=== PATIENT | male | born 1950 | race Caucasian/White ===

== ENCOUNTER 2017-05-02 19:52 | Inpatient (IN) | payer MEDICARE ==
[~2017-05-02] VITALS: Ht 154.7 cm; Wt 126.6 kg
[2017-05-02 20:02] VITALS: BP 123/60
[2017-05-02 20:50] LABS: BASOPHILS % 0.7 % (0.0-1.0); EOSINOPHILS # (AUTO) 0.1 (0.0-0.4); EOSINOPHILS % 1.2 % (0.0-6.0); LYMPHOCYTES # (AUTO) 1.8 (1.0-3.2); LYMPHOCYTES % 29.8 % (18.0-39.1); MEAN CORPUSCULAR HGB CONC 32.9 g/dL (31-35); MEAN CORPUSCULAR VOLUME 85.1 fL (81-99); MONOCYTES # (AUTO) 0.5 (0.2-0.8); MONOCYTES % 7.4 % (4.4-11.3); NEUTROPHILS # (AUTO) 3.5 (2.1-6.9); NEUTROPHILS % 57.6 % (38.7-80.0); PLATELET COUNT 274 x10e3/uL (140-360); RED BLOOD COUNT 2.82 x10e6/uL (4.3-5.7); RED CELL DISTRIBUTION WIDTH 16.3 % (11.7-14.4)
[2017-05-02 20:54] LABS: HEMOGLOBIN 7.9 g/dL (14.0-18.0)
[2017-05-02 21:00] VITALS: BP 123/64
[2017-05-02 21:09] LABS: ALANINE AMINOTRANSFERASE 78 IU/L (0-55); ALBUMIN 2.7 g/dL (3.5-5.0); ALBUMIN/GLOBULIN RATIO 0.5 (0.8-2.0); ALKALINE PHOSPHATASE 741 IU/L (40-150); ANION GAP 16.4 mmol/L (8-16); BLOOD UREA NITROGEN 25 mg/dL (7-26); BUN/CREATININE RATIO 22 (6-25); CALCIUM 8.8 mg/dL (8.4-10.2); CARBON DIOXIDE 22 mmol/L (22-29); CHLORIDE 101 mmol/L (98-107); CHOL/HDL RATIO 5.1 (3.9-4.7); CHOLESTEROL 158 MD/DL (0-199); CREATININE, SERUM 1.16 mg/dL (0.72-1.25); EST GLOMERULAR FILTRATION RATE > 60 ML/MIN (60-); GLUCOSE 159 mg/dL (74-118); HDL CHOLESTEROL 31 MG/DL (40-60); LDL CHOLESTEROL 88 MG/DL (60-130); POTASSIUM 4.4 mmol/L (3.5-5.1); SODIUM 135 mmol/L (136-145); TRIGLYCERIDES 196 MG/DL (0-149)
[2017-05-02] MEDS ORDERED: LORAZEPAM INJ 2 MG/ML VIAL IV STA (21:21)
[2017-05-02 21:22] LABS: ERYTHROCYTE SEDIMENTATION RATE 127 mm/hr (0-13)
[2017-05-02] MEDS ORDERED: DEXTROSE 50% SYRINGE 50 ML IV PRN (21:30)
[2017-05-02] MEDS: INSULIN LISPRO 100 UNIT/1 ML 3ML VIAL SQ SCH (21:30)
[2017-05-02 21:57] LABS: EOSINOPHILS % (MANUAL) 1 % (0-7); HYPOCHROMASIA SLIGHT; LYMPHOCYTES % (MANUAL) 35 % (19-48); MONOCYTES % (MANUAL) 8 % (3.4-9.0); NEUTROPHILS % (MANUAL) 55 % (40-74); PLATELET ESTIMATE ADEQUATE; PLATELET MORPHOLOGY COMMENT NORMAL; RBC MORPHOLOGY COMMENT NORMAL
[2017-05-02] MEDS ORDERED: LORAZEPAM INJ 2 MG/ML VIAL IV ONE (22:45)
[2017-05-02] MEDS: HYDROMORPHONE 1MG/1ML INJ IV PRN (23:31)
--- NOTE | 2017-05-02 23:52 | Diagnostic Imaging Report ---
History: Severe low back pain. Comparison studies: None Technique: Axial images were obtained through the lumbar spine from L1-S1. Coronal and sagittal images reconstructed from the axial data. Intravenous contrast: 100 mL of Isovue-370. Findings: The usual 5 non-rib bearing lumbar vertebral bodies are present. Alignment: Normal lordosis. No scoliosis. Soft tissues: Incidental 1 cm hypodense nodule in left renal parenchyma is partially visualized. Paraspinal muscles: Fatty atrophy of posterior paraspinal muscles from level L2-L4 to L5-S1 Sacroiliac joints: Moderate degenerative changes in bilateral sacroiliac joints with decreased joint space, sclerosis and osteophytes. Vertebrae: Diffuse heterogeneous predominantly sclerotic and hyperdense appearance of the visualized spine, sacrum and ilium is concerning for underlying metastasis process. No acute displaced fracture. Expected postoperative changes from prior laminectomy at L4 and L5. Degenerative changes: L1-L2: No abnormalities. L2-L3: Disc bulge in combination with facet arthrosis and thickened ligamentum flavum results in mild canal stenosis. No significant foraminal stenosis. Mild right and moderate left facet arthrosis. L3-L4: Disc bulge in combination with thickened ligamentum flavum and bilateral facet arthrosis results in severe canal stenosis. Severe right and moderate left foraminal stenosis. Severe bilateral facet arthrosis. L4-L5: Disc bulge and bilateral advanced facet arthrosis results in mild canal stenosis. Severe bilateral foraminal stenosis. Trace amount of air in right facet joint. Severe bilateral facet arthrosis P L5-S1: Disc bulge and facet arthrosis effaces thecal sac without canal stenosis. Bilateral severe foraminal stenosis. Bilateral advanced facet arthrosis. IMPRESSION: 1. Diffuse heterogeneous bone marrow density with predominant sclerotic appearance raises concern for metastases process. Further evaluation with MRI of the lumbar spine with and without contrast is recommended. 2. Multilevel lumbar spondylosis, particularly severe canal stenosis at L3-L4, and mild canal stenosis at L2-L3 and L4-L5. 3. Multilevel foraminal stenosis, particularly severe right and moderate left at L3-L4, severe bilateral at L4-L5 and L5-S1. 4. Multilevel facet arthrosis as detailed above. 5. Ligament, spinal cord and or vascular abnormalities cannot be excluded on the basis of this examination. Signed by: Dr. Marylin Rosales M.D. on 05/02/2017 11:49 PM
[2017-05-02 23:54] LABS: BILIRUBIN,URINE NEGATIVE (NEGATIVE); CLARITY,URINE CLEAR (CLEAR); COLOR,URINE YELLOW (YELLOW); KETONES,URINE NEGATIVE (NEGATIVE); LEUKOCYTE ESTERASE ,URINE NEGATIVE (NEGATIVE); NITRITE,URINE NEGATIVE (NEGATIVE); PROTEIN,URINE DIPSTICK NEGATIVE (NEGATIVE); URINE UROBILINOGEN 0.2 mg/dL (0.2 - 1)
[2017-05-03 00:03] LABS: BACTERIA,URINE FEW /HPF; EPITHELIAL CELLS,URINE FEW /LPF; RBC,URINE 0-5 /HPF (0-5); WBC,URINE (MAN) 0-5 /HPF (0-5)
[2017-05-03 00:36] VITALS: BP 118/56
[2017-05-03 04:00] VITALS: BP 118/58
[2017-05-03 08:05] VITALS: BP 138/64
[2017-05-03] MEDS: FAMOTIDINE 20 MG TAB PO SCH ×2 (08:07→16:01)
[2017-05-03] MEDS: INSULIN DETEMIR 100 UNIT/ML PEN SQ SCH (08:12)
[2017-05-03] MEDS: INSULIN LISPRO 100 UNIT/1 ML 3ML VIAL SQ SCH ×4 (08:13→21:00)
[2017-05-03 08:47] LABS: THYROID STIMULATING HORMONE 1.052 uIU/mL (0.350-4.940)
[2017-05-03] MEDS ORDERED: SODIUM CHLORIDE 0.9% 50ML 50 ML ONE (09:10)
[2017-05-03] MEDS ORDERED: IOPAMIDOL 370 MG/ML 200 ML INFUS..BTL INJ ONE (09:10)
[2017-05-03 09:29] LABS: FERRITIN 3654.15 ng/mL (21.81-274.66)
[2017-05-03 09:59] LABS: ALBUMIN 2.4 g/dL (3.5-5.0); BILIRUBIN,DIRECT 0.2 mg/dL (0.0-5.0)
--- NOTE | 2017-05-03 10:48 | History and Physical ---
PRIMARY CARE PHYSICIAN: Dr. Delgado. CHIEF COMPLAINT: Back pain and leg weakness. HISTORY OF PRESENT ILLNESS: This is a 67-year-old man with a history of gout, diabetes mellitus type 2, and morbid obesity, now developing lower back pain and leg weakness and pain. He states that the pain was on the anterior region of the thigh. His pain has been ongoing for about a week. It has been noted that the patient's PSA has been as high as 16. Patient was seen in [place] [facility] [place] and now transferred here for further evaluation and management. He denies any family history of prostate cancer, but he does admit to his grandmother having lung cancer and his sister having a melanoma. He denies any urinary or fecal incontinence. PAST MEDICAL HISTORY: Gout, diabetes mellitus type 2, cigarette abuse, and morbid obesity. PAST SURGICAL HISTORY: Stomach surgery, unknown type. ALLERGIES: PER ELECTRONIC MEDICAL RECORD. FAMILY HISTORY: No prostate cancer. Grandmother had lung cancer and sister melanoma. SOCIAL HISTORY: Patient is . He has 2 children. No alcohol use. He smokes 1 pack of cigarettes per day. MEDICATIONS: Per electronic medical record. REVIEW OF SYSTEMS: Denies any dizziness or chest pain. PHYSICAL EXAMINATION VITAL SIGNS: Reviewed. GENERAL: A tired-appearing man resting in bed. HEENT: Anicteric. CARDIOVASCULAR: Normal S1 and S2. LUNGS: Moderate breath sounds. ABDOMEN: Soft, nontender, and nondistended. EXTREMITIES: No edema or calf tenderness. NEUROLOGICAL: Alert and oriented x3. He moves all extremities. Motor strength in lower extremities is 4/5 bilaterally. SKIN: Dry. PSYCHIATRIC: Normal affect. LABS: Reviewed. MEDICATIONS: Reviewed. ASSESSMENT AND PLAN: This is a 67-year-old man with: 1. Severe lumbar stenosis at L3-L4 with associated lower extremity weakness. We will consult Dr. Beaulieu of neurosurgery. We will also obtain a vitamin B12 level. 2. Moderate foraminal stenosis with severe right and moderate left L3-L4 and bilateral L4-L5 and L5-S1 disease. 3. Sclerotic lesions diffusely in the paravertebral column with elevated PSA. PSA level is pending. This could be metastatic disease. We will await PSA findings here. 4. Morbid obesity with BMI of 52.9. Consult feather mixer for calorie restriction teach and other resources. 5. Diabetes mellitus type 2. Obtain hemoglobin A1c and lipid panel. Use the diabetic diet and sliding scale insulin. We will start the patient on insulin Levemir 5 units daily. 6. Moderate normocytic anemia. We will obtain an anemia panel. 7. Elevated LFTs with elevated alkaline phosphatase. Elevated alkaline phosphatase could be related to bone lesions related to any prostate disease. We will obtain a hepatitis panel and may need to obtain an ultrasound of the abdomen. 8. Elevated sed rate of 127. 9. Physical deconditioning. Physical therapy consultation. 10. Prophylaxis. We will use SCD and Pepcid. 11. Disposition. Follow up neurosurgery recommendations. Job#: [id number] SAK
[2017-05-03 12:00] VITALS: BP 137/66
[2017-05-03] MEDS ORDERED: LORAZEPAM INJ 2 MG/ML VIAL IV ONE ×3 (12:45→23:00)
[2017-05-03] MEDS ORDERED: GADOBENATE DIMEGLUMINE 0 ML IV ONE (13:22)
[2017-05-03] MEDS: TRAMADOL HCL 50 MG TAB PO SCH ×2 (16:01→21:00)
[2017-05-03] MEDS: CYCLOBENZAPRINE HCL 10 MG TAB PO SCH ×2 (16:01→21:00)
--- NOTE | 2017-05-03 19:54 | Consultation ---
DATE OF CONSULTATION: May 03, 2017 REASON FOR CONSULTATION: Low back and bilateral leg pain. The patient is a 67-year-old obese man who has had previous lumbar surgery in the distant past. He now presents with a one-month history of severe progressive low back pain radiating down both legs to the calves associated with numbness in the feet. He has trouble ambulating and has resorted to using a walker. He came to the emergency room and was admitted. He denies any urinary incontinence. He had a CT of the lumbar spine, which revealed severe spinal stenosis at L3-4 due to facet and ligamentous hypertrophy and partial ossification of ligamentum flavum. In addition, the CT revealed diffuse heterogenous bone marrow density changes throughout the spine, which raised concern for an infiltrative neoplastic process. However, he does not have any pathological compression fractures or bone deformity as a result of this process. His blood work showed anemia and markedly elevated alkaline phosphatase. His white blood count and platelet count are normal. He denies any previous history of cancer. On examination, the patient is an obese man who is able to get out of bed on his own. He can stand and walk with some difficulty. He cannot stay on his toes or heels. Motor strength is diminished in the quadriceps and he cannot rise from a squatting position. Deep tendon reflexes are absent throughout. Plantar responses are flexor. Straight leg raising is positive bilaterally at [address] of the lumbar spine reveals severe spinal stenosis at L3-4 due to facet and ligamentous hypertrophy and ligamentous ossification. He has mild inner stenosis ulcer in the lumbar spine. In addition, he has diffuse infiltrative heterogeneous bone marrow changes throughout the spine concerning for an infiltrative neoplastic process. There are no pathological fractures. The patient could not undergo an MRI of the lumbar spine because of his size. RECOMMENDATIONS: I have offered the patient the option of surgery which would consist of L3-4 bilateral decompressive laminectomy. This would serve 2 purposes. It would decompress his severe spinal stenosis and at the same time obtain bone specimen for histological examination to rule out a neoplastic process. In the meanwhile, I will proceed with a neoplastic workup including CT of the chest and abdomen, serum protein electrophoresis, and PSA. The risks and benefits and alternatives to surgery including discharge followed by an outpatient MRI and conservative treatment were discussed with the patient. He is going to think about his options and talk to his sister and let us know how he wishes to proceed. KULWINDER: 05/03/2017 18:38 Job#: [id number] JULES
[2017-05-03 20:00] VITALS: BP_SYST 127; BP_SYST 143; BP_DIAS 60; BP_DIAS 88
[2017-05-04] VITALS (7 sets, daily range): BP systolic 118–140; BP diastolic 59–71
[2017-05-04 00:05] LABS: BLOOD UREA NITROGEN 16 mg/dL (7-26); BUN/CREATININE RATIO 17 (6-25); CREATININE, SERUM 0.96 mg/dL (0.72-1.25); EST GLOMERULAR FILTRATION RATE > 60 ML/MIN (60-)
--- NOTE | 2017-05-04 01:37 | Diagnostic Imaging Report ---
EXAM: CT CHEST W, CT ABDOMEN WOW INDICATION: Neoplastic workup COMPARISON: None. TECHNIQUE: The chest and abdomen were scanned utilizing a multidetector helical scanner from the lung apex to the pubic symphysis. Note that noncontrast and contrast-enhanced CT images of the abdomen performed. Coronal and sagittal reformations were obtained IV CONTRAST: 100 mL Isovue 370 FINDINGS: LINES and TUBES: None. LUNGS/AIRWAYS/PLEURA: There are innumerable bilateral pulmonary nodules involving all lobes. For example a right lower lobe nodule measures 3.3 cm on image 52 and a left lower lobe nodule measures 2 cm on image 43. HEART AND MEDIASTINUM: Incidental subcentimeter thyroid nodules. There is mediastinal and bilateral hilar adenopathy, for example right hilar node measuring 2 cm and subcarinal node measuring 1.8 cm. The heart is normal in size. There is no pericardial effusion. HEPATOBILIARY/GALLBLADDER: Mild hepatic steatosis with slightly heterogeneous appearance of the liver. No discrete lesions or biliary ductal dilation SPLEEN: No splenomegaly. PANCREAS: No masses or ductal dilation. ADRENALS: 2.6 cm left adrenal myelolipoma. KIDNEYS/URETERS: No solid renal masses. Subcentimeter left renal hypodensities, likely cysts No hydronephrosis. GI TRACT: Mildly dilated loops of small bowel in the central abdomen; transition point difficult to identify as the pelvis was not imaged. Distal loops are decompressed. Diverticulosis. Normal appendix. LYMPH NODES: There is retrocrural, retroperitoneal, and partially imaged pelvic adenopathy. For example a left periaortic node measures 1.3 cm in short axis on image 89. VESSELS: Mild atherosclerotic disease. PERITONEUM / RETROPERITONEUM: No free air or fluid. 5 mm right anterior peritoneal nodule on image 69; attention on follow-up. BONES/SOFT TISSUES: Diffuse/multifocal osseous heterogeneous sclerosis. Underlying degenerative changes with prior lumbar decompression and spinal and foraminal stenosis better seen on recent CT. IMPRESSION: 1. Widespread metastatic disease, primary unknown. Correlate with PSA, prostate exam given adenopathy and bony sclerotic metastases. -Innumerable pulmonary nodules. -Thoracic, abdominal and partially imaged pelvic adenopathy -Diffuse/multifocal osseous sclerotic metastatic disease. 2. Mildly distended central loops of small bowel, which may reflect partial/early obstruction, suboptimally assessed as the pelvis was not imaged. Recommend radiographic follow-up. Signed by: Dr Kelsea Cm MD on 05/04/2017 1:33 AM
[2017-05-04] MEDS: CYCLOBENZAPRINE HCL 10 MG TAB PO SCH ×3 (05:45→21:03)
[2017-05-04] MEDS: TRAMADOL HCL 50 MG TAB PO SCH ×3 (05:45→21:04)
[2017-05-04] MEDS: FAMOTIDINE 20 MG TAB PO SCH ×2 (08:22→17:17)
[2017-05-04] MEDS: INSULIN LISPRO 100 UNIT/1 ML 3ML VIAL SQ SCH ×4 (08:24→20:30)
[2017-05-04] MEDS: INSULIN DETEMIR 100 UNIT/ML PEN SQ SCH (08:24)
[2017-05-04] MEDS: BICALUTAMIDE 50 MG TABLET PO SCH (10:00)
[2017-05-04] MEDS: HYDROMORPHONE 1MG/1ML INJ IV PRN (12:33)
--- NOTE | 2017-05-04 13:35 | Progress Note ---
DATE: May 04, 2017 MEDICINE PROGRESS NOTE TIME OF SERVICE: 12 noon. SUBJECTIVE: Overnight, no events. Pain is better controlled. REVIEW OF SYSTEMS: Denies any dizziness, chest pain. VITAL SIGNS: Reviewed. PHYSICAL EXAMINATION GENERAL APPEARANCE: A tired-appearing man resting in bed. HEENT: Anicteric. CARDIOVASCULAR: Normal S1/S2. LUNGS: Moderate breath sounds. ABDOMEN: Soft, nontender, nondistended. EXTREMITIES: No edema or calf tenderness. NEUROLOGICALLY: Alert and oriented x3. Moving all extremities. SKIN: Dry. PSYCHIATRIC: Flat affect. LABS: Reviewed. MEDICATIONS: Reviewed. ASSESSMENT: A 67-year-old man. 1. Severe lumbar stenosis at L3-L4 with associated lower extremity weakness. 2. Moderate foraminal stenosis with severe right and moderate left L3-L4 and bilateral L4-L5 and L5-S1 disease. 3. Sclerotic lesions diffusely in the paravertebral column. 4. Morbid obesity with body mass index of 52.9. 5. Diabetes mellitus type 2. Hemoglobin A1c is 5.2, LDL 88, triglyceride 196. 6. Moderate normocytic anemia. 7. Elevated liver function tests with elevated alkaline phosphatase. 8. Elevated sed rate. 9. Physical deconditioning. 10. Markedly elevated prostate-specific antigen of 522. PLAN 1. Biopsy of lymph node is pending. 2. Decompressive laminectomy with biopsy offered to the patient by Dr. Beaulieu. 3. Continue insulin Levemir, titrate as appropriate. 4. Continue bicalutamide. 5. Continue cyclobenzaprine and Dilaudid. 6. Cultures remain negative. 7. Continue to control pain. Job#: [id number] EV
--- NOTE | 2017-05-04 14:15 | Consultation ---
DATE OF CONSULTATION: May 04, 2017 UROLOGY CONSULTATION REASON FOR CONSULTATION: Elevated PSA and diffuse bony mets. HISTORY OF PRESENT ILLNESS: The patient's primary care physician, Dr. Hoover, asked me to see this patient due to the fact that he had transferred him to this facility due to acute lower extremity weakness with back pain and an elevated PSA of 17. The patient has never seen a urologist. He denies hematuria, dysuria, urinary tract infections and urolithiasis. Denies ever having urological surgery. The patient has diffuse bony mets and signs of cord compression with lower extremity weakness. PAST MEDICAL AND SURGICAL HISTORY 1. Morbid obesity. 2. Status post exploratory laparotomy due to being stepped on by a bull at age 16. 3. Status post left knee scope. 4. Diabetes mellitus. SOCIAL HISTORY: The patient smokes 1 pack per day of cigarettes. Denies ethanol or drug use. The patient is a retired electrician's helper. ALLERGIES: SULFA. CURRENT MEDICATIONS: Please refer to the MAR. REVIEW OF SYSTEMS: As consistent with above history of present illness and past medical history, is otherwise negative for all other systems. FAMILY HISTORY: Noncontributory to the active urological problems. PHYSICAL EXAMINATION GENERAL: Elderly man lying in bed in no apparent distress. VITAL SIGNS: He is currently afebrile. His vital signs are currently stable. ABDOMEN: Soft, nondistended, nontender, and is obese. He has scars consistent with a previous exploratory laparotomy. GENITOURINARY: Testes descended bilaterally and are bilaterally atrophic. The patient has a buried uncircumcised male phallus. There is at least secondary phimosis. I cannot see the glans penis, and I cannot see the meatus. For the remaining physical examination and systems, please refer to the admission history and physical on the chart. LABORATORY STUDIES: Urine culture is preliminarily negative. White blood cell count is 6080. Hemoglobin is low at 7.9. Platelets are 274,000. The patient's creatinine is normal at 0.96. His AST, ALT, alkaline phosphatase are elevated. Patient's PSA is 522 on the recheck. The first PSA was 520.9. CT scan of the chest and abdomen reveals widespread metastatic disease with innumerable pulmonary nodules, thoracic abdominal partially imaged pelvic lymphadenopathy and diffuse multifocal osteosclerotic metastatic disease. ASSESSMENT 1. Very elevated prostate-specific antigen. 2. Obese. 3. Smoker. 4. Atrophic testes. 5. Phimosis due to obesity. 6. Anemia. PLAN 1. Anemia per primary team. 1. Biopsy of lesion with PSA staining by Interventional Radiology. 2. Cord compression per Neurosurgery. 3. I will start the patient on Casodex. 4. Unfortunately, the pelvis was not imaged along with the abdomen. I will order an additional pelvis CT and bone scan. Thank you very much for involving us in the care of your patient. We will be happy to follow him along with you as well as an outpatient. Job#: [id number] EV cc:CHRISSY HOOVER MD
[2017-05-05] VITALS (9 sets, daily range): BP systolic 96–132; BP diastolic 50–63
[2017-05-05] MEDS: HYDROMORPHONE 1MG/1ML INJ IV PRN ×4 (01:45→22:13)
[2017-05-05] MEDS: CYCLOBENZAPRINE HCL 10 MG TAB PO SCH ×3 (05:36→21:23)
[2017-05-05] MEDS: TRAMADOL HCL 50 MG TAB PO SCH ×3 (05:37→21:23)
[2017-05-05 07:16] LABS: BASOPHILS % 0.2 % (0.0-1.0); EOSINOPHILS # (AUTO) 0.1 (0.0-0.4); EOSINOPHILS % 1.2 % (0.0-6.0); HEMATOCRIT 24.6 % (38.2-49.6); LYMPHOCYTES % 24.5 % (18.0-39.1); MEAN CORPUSCULAR HEMOGLOBIN 27.6 pg (28-32); MEAN CORPUSCULAR HGB CONC 32.1 g/dL (31-35); MONOCYTES # (AUTO) 0.3 (0.2-0.8); MONOCYTES % 7.9 % (4.4-11.3); NEUTROPHILS # (AUTO) 2.6 (2.1-6.9); NEUTROPHILS % 63.7 % (38.7-80.0); PLATELET COUNT 267 x10e3/uL (140-360); RED BLOOD COUNT 2.86 x10e6/uL (4.3-5.7); RED CELL DISTRIBUTION WIDTH 16.2 % (11.7-14.4)
[2017-05-05 07:19] LABS: HEMOGLOBIN 7.9 g/dL (14.0-18.0)
[2017-05-05 07:26] LABS: ANION GAP 15.1 mmol/L (8-16); BLOOD UREA NITROGEN 18 mg/dL (7-26); BUN/CREATININE RATIO 18 (6-25); CALCIUM 8.6 mg/dL (8.4-10.2); CARBON DIOXIDE 21 mmol/L (22-29); CHLORIDE 101 mmol/L (98-107); CREATININE, SERUM 0.99 mg/dL (0.72-1.25); EST GLOMERULAR FILTRATION RATE > 60 ML/MIN (60-); GLUCOSE 169 mg/dL (74-118); POTASSIUM 4.1 mmol/L (3.5-5.1); SODIUM 133 mmol/L (136-145)
[2017-05-05] MEDS: FAMOTIDINE 20 MG TAB PO SCH ×2 (08:48→17:07)
[2017-05-05] MEDS: BICALUTAMIDE 50 MG TABLET PO SCH (08:48)
[2017-05-05] MEDS: INSULIN LISPRO 100 UNIT/1 ML 3ML VIAL SQ SCH ×4 (08:55→21:30)
[2017-05-05] MEDS: INSULIN DETEMIR 100 UNIT/ML PEN SQ SCH (08:55)
[2017-05-05 11:15] LABS: BAND NEUTROPHILS % (MANUAL) 27 %; EOSINOPHILS % (MANUAL) 3 % (0-7); LYMPHOCYTES % (MANUAL) 28 % (19-48); MONOCYTES % (MANUAL) 3 % (3.4-9.0); NEUTROPHILS % (MANUAL) 39 % (40-74)
[2017-05-05 11:16] LABS: PLATELET ESTIMATE ADEQUATE; PLATELET MORPHOLOGY COMMENT NORMAL; RBC MORPHOLOGY COMMENT NORMAL
--- NOTE | 2017-05-05 13:53 | Progress Note ---
DATE: May 05, 2017 MEDICINE PROGRESS NOTE TIME OF SERVICE: 10:30 a.m. SUBJECTIVE: Overnight, pain is better controlled. REVIEW OF SYSTEMS: Denies any dizziness, chest pain. VITAL SIGNS: Reviewed. PHYSICAL EXAMINATION GENERAL APPEARANCE: A tired-appearing man resting in bed. HEENT: Anicteric. CARDIOVASCULAR: Normal S1/S2. LUNGS: Moderate breath sounds. ABDOMEN: Soft, nontender, nondistended. EXTREMITIES: No edema or calf tenderness. NEUROLOGICALLY: Alert and oriented x3. Moves all extremities. SKIN: Dry. PSYCHIATRIC: Flat. LABS: Reviewed. MEDICATIONS: Reviewed. ASSESSMENT: A 67-year-old man. 1. Severe lumbar stenosis at L3-L4 with associated lower extremity weakness. 2. Moderate foraminal stenosis with severe right and moderate left L3 to L1, bilateral L4-L5 and L5-S1 disease. 3. Sclerotic lesions diffusely in the paravertebral column. 4. Morbid obesity with body mass index of 52.9. 5. Diabetes mellitus type 2. Hemoglobin A1c is 5.2, LDL 88. 6. Moderate normocytic anemia. 7. Elevated liver function tests with elevated alkaline phosphatase. 8. Elevated sed rate. 9. Physical deconditioning. 10. Markedly elevated prostate-specific antigen of 522. PLAN 1. Biopsy of the lymph node pending. 2. Decompressive laminectomy with biopsy possibly pending. 3. Continue blood glucose control. 4. Continue bicalutamide. 5. Continue cyclobenzaprine and Dilaudid. 6. Hemoglobin is 7.9 today, which is unchanged from yesterday. 7. Glucose is controlled. His hemoglobin A1c was 9.2. His LDL was 88. 8. Vitamin B12 anemia. Will start him on vitamin B12 shots now, daily for 5 days, and then he is going to pills. His vitamin B12 level is only 205. Job#: [id number] EV
--- NOTE | 2017-05-05 16:28 | Diagnostic Imaging Report ---
EXAM: CT Pelvis WITHOUT contrast INDICATION: Evaluate prostate. Metastatic disease identified in the lungs. COMPARISON: None. Correlation with CT abdomen dated 05/03/2017. TECHNIQUE: Pelvis were scanned utilizing a multidetector helical scanner from the iliac crest to the pubic symphysis without administration of IV contrast. Coronal and sagittal reformations were obtained. Routine protocol was performed. IV CONTRAST: None. ORAL CONTRAST: Water RADIATION DOSE: Total DLP: 380.35 mGy*cm Estimated effective dose: (DLP x 0.015 x size factor) mSv COMPLICATIONS: None FINDINGS: LINES and TUBES: None. GI TRACT: No abnormal distention, wall thickening, or evidence of bowel obstruction. The appendix is unremarkable. Scattered descending and sigmoid colon diverticula without acute diverticulitis. PELVIC ORGANS/BLADDER: The prostate is mildly enlarged. There are calcific densities within the prostate apex and along the right prostatic lobe. The urinary bladder is completely opacified with contrast and unremarkable LYMPH NODES: No lymphadenopathy. There are small lymph nodes scattered throughout the iliac chain bilaterally, left greater than right; the largest on the left measuring 2.1 x 1.2 cm on images 16. VESSELS: Unremarkable. PERITONEUM / RETROPERITONEUM: No free air or fluid. BONES: Osteoblastic metastasis throughout the visualized lumbosacral spine and pelvic bones. SOFT TISSUES: Bilateral tiny fat-containing inguinal hernias. IMPRESSION: 1. Mild pelvic lymphadenopathy. The prostate gland is not well evaluated with CT examination. 2. Osteoblastic metastasis. Signed by: Dr. Reece Ponce M.D. on 05/05/2017 4:24 PM
[2017-05-06] VITALS (7 sets, daily range): BP systolic 111–126; BP diastolic 52–60
[2017-05-06] MEDS: HYDROMORPHONE 1MG/1ML INJ IV PRN ×4 (02:23→17:38)
[2017-05-06] MEDS: TRAMADOL HCL 50 MG TAB PO SCH ×3 (06:00→22:10)
[2017-05-06] MEDS: CYCLOBENZAPRINE HCL 10 MG TAB PO SCH ×3 (06:00→22:10)
--- NOTE | 2017-05-06 06:12 | Progress Note ---
DATE: May 06, 2017 TIME: 5 a.m. OVERNIGHT: No events. REVIEW OF SYSTEMS: Denies any dizziness. PHYSICAL EXAMINATION VITAL SIGNS: Reviewed. GENERAL: A tired-appearing man resting in bed. HEENT: Anicteric. CARDIOVASCULAR: Normal S1 and S2. LUNGS: Moderate breath sounds. ABDOMEN: Soft, nontender and nondistended. EXTREMITIES: No edema. SKIN: Dry. PSYCHIATRIC: Flat affect. LABS: Reviewed. MEDICATIONS: Reviewed. ASSESSMENT: A 67-year-old man with: 1. Severe lumbar stenosis with stenosis at L3-L4. 2. Psoriatic lesion, diffuse in the paravertebral column. 3. Morbid obesity with body mass index of 52.9. 4. Diabetes mellitus, type 2: Hemoglobin A1c 5.2, LDL 88. 5. Normocytic anemia. 6. Elevated liver function tests and elevated alkaline phosphatase. 7. Physical deconditioning. 8. Markedly elevated prostatic specific antigen of 522. 9. Vitamin B12 deficiency and anemia. PLAN 1. Biopsy pending for today. 2. Decompressive laminectomy pending. 3. Continue bicalutamide. 4. Continue cyclobenzaprine and Dilaudid. 5. Continue vitamin B12 supplementation. 6. Follow up H and [facility] today. Job#: [id number] YESSI
[2017-05-06 06:58] LABS: HEMATOCRIT 23.5 % (38.2-49.6)
[2017-05-06 07:11] LABS: HEMOGLOBIN 7.7 g/dL (14.0-18.0)
[2017-05-06] MEDS: FAMOTIDINE 20 MG TAB PO SCH ×2 (07:30→16:26)
[2017-05-06] MEDS: INSULIN LISPRO 100 UNIT/1 ML 3ML VIAL SQ SCH ×4 (07:30→20:10)
[2017-05-06] MEDS ORDERED: SODIUM CHLORIDE 0.9% 250ML 250 ML IV ONE (07:45)
[2017-05-06] MEDS: CYANOCOBALAMIN INJ 1,000 MCG/ML VIAL IM SCH (08:46)
[2017-05-06] MEDS: INSULIN DETEMIR 100 UNIT/ML PEN SQ SCH (08:46)
[2017-05-06] MEDS: BICALUTAMIDE 50 MG TABLET PO SCH (08:46)
[2017-05-06] MEDS ORDERED: BACITRACIN 50,000 UNIT VIAL ONE (11:14)
[2017-05-06] MEDS ORDERED: THROMBIN FOR SOLN 5,000 UNIT VIAL ONE (11:14)
[2017-05-06] MEDS ORDERED: GELATIN SPONGE SZ 100 ONE (11:14)
[2017-05-06] MEDS ORDERED: LIDOCAINE 1% W/EPINEPHRINE 20 ML VIAL ONE (11:14)
[2017-05-06] MEDS ORDERED: LIDOCAINE HCL (LTA) 4 ML SOLN ONE (12:03)
[2017-05-06] MEDS: LACTATED RINGER'S 1,000 ML IV SCH ×2 (13:24→21:44)
[2017-05-06] MEDS ORDERED: PROMETHAZINE HCL (IM) 25 MG/ML VIAL IM PRN (13:30)
[2017-05-06] MEDS ORDERED: ACETAMINOPHEN 325 MG TAB PO PRN (13:30)
[2017-05-06] MEDS ORDERED: ZOLPIDEM TARTRATE 5 MG TAB PO PRN (13:30)
[2017-05-06] MEDS ORDERED: CEPACOL SORE THROAT LOZENGES PO PRN (13:30)
[2017-05-06] MEDS ORDERED: MORPHINE SULFATE 5 MG/ML VIAL IM PRN (13:30)
[2017-05-06] MEDS ORDERED: MAGNESIUM/ALUMINUM/SIMETHICONE 30 ML UDC PO PRN (13:30)
[2017-05-06] MEDS ORDERED: CARISOPRODOL 350 MG TAB PO PRN (13:30)
[2017-05-06] MEDS ORDERED: CEFAZOLIN SOD 1 GM/NS 50ML 50 ML IV SCH (14:00)
[2017-05-06] MEDS ORDERED: FENTANYL CITRATE/PF 100MCG/2 ML INJ ONE ×2 (14:21→14:38)
[2017-05-06] MEDS ORDERED: MIDAZOLAM HCL 2 MG/2 ML VIAL ONE (14:38)
[2017-05-06] MEDS ORDERED: ALBUTEROL SULF 0.083% NEB SOLN 3 ML NEB ONE (14:45)
--- NOTE | 2017-05-06 15:03 | Operative Report ---
DATE OF PROCEDURE: May 06, 2017 PREOPERATIVE DIAGNOSIS: L3-4 severe spinal stenosis with bilateral radiculopathy and neurogenic claudication, M48.062. POSTOPERATIVE DIAGNOSIS: L3-4 severe spinal stenosis with bilateral radiculopathy and neurogenic claudication, M48.062. PROCEDURES 1. L3 bilateral decompressive laminectomy and L3-4 medial facetectomies, 27709. 2. L4 bilateral redo decompressive laminectomy, 28649. ANESTHESIA: General. INDICATIONS: The patient is a 67-year-old man who presents with severe L3-4 spinal stenosis above the level of the previous L4-5 decompressive laminectomy. He is symptomatic with low back pain and bilateral leg pain. In addition, he has mottled appearance of the vertebral bodies throughout this spine and a markedly elevated PSA, suspicious for metastatic prostate cancer. He was taken to the operating room for bilateral decompressive laminectomy at L3-4 and bone specimen was spent for demineralization and pathological examination to rule out metastatic disease to the spine. PROCEDURE: After induction of general anesthesia, the patient was placed on the operating table in prone position over a Manan frame. The lumbar region was prepped and draped in sterile fashion. A preoperative x-ray was obtained. A midline incision was created overlying his previous incisional scar. The lumbar fascia was opened along the midline and a careful dissection was carried out to expose the L3 spinous process and lamina, the L3-4 facet joints, and the residual upper aspect of the L4 lamina which was encased in scar. The spinous process of L3 was resected with a Leksell rongeur. Retraction was maintained with an Aesculap speculum retractor. The operating microscope was brought in. A high-speed drill equipped with a igor cali was used to drill a transverse trough across the upper portion of the lamina of L3 and along the lateral margin of the lamina on each side. The laminar bone was then elevated and removed and submitted for as a specimen. The markedly hypertrophic ligamentum flavum was then resected from the dorsal aspect of the dural sac at the L3-4 level [address] the way down to the level of the previous scar. The residual lamina of L4 was drilled away with a igor cali in order to facilitate complete decompression of the L3-4 segment. The lateral recesses were then decompressed a 2 mm Kerrison rongeur by completely removing the ligamentum flavum in those areas in order to fully expose and decompress the dural sac and the L4 traversing nerve roots bilaterally. After satisfactory decompression had been achieved, the wound was irrigated with bacitracin solution. Meticulous hemostasis was secured. The wound was closed in multiple layers with 0 and 2-0 Vicryl sutures, 3-0 Monocryl sutures, and bobby. A dressing was applied. The patient was awakened, extubated, and taken to postanesthesia care unit in stable condition. No intraoperative complications were encountered. Estimated blood loss was 30 mL. Job#: [id number] PAT
[2017-05-06] MEDS: OXYCODONE/ACETAMINOPHEN 5-325 1 EACH TABLET PO PRN ×2 (15:37→20:10)
[2017-05-06] MEDS ORDERED: LIDOCAINE HCL 2% JELLY 5 ML TUBE ONE (18:48)
[2017-05-06] MEDS ORDERED: PROPOFOL IV EMULSION 10 MG/ML 20 ML VIAL ONE (18:48)
[2017-05-06] MEDS ORDERED: DEXAMETHASONE SOD PHOS INJ 4 MG/ML VIAL ONE (18:48)
[2017-05-06] MEDS ORDERED: NEOSTIGMINE 5 MG/5ML SYR ONE (18:48)
[2017-05-06] MEDS ORDERED: SEVOFLURANE INHAL SOLN 250 ML PEN BTL ONE (18:48)
[2017-05-06] MEDS ORDERED: LIDOCAINE HCL 2% LOCAL INJ 5 ML SDV VIAL INJ ONE (18:48)
[2017-05-06] MEDS ORDERED: ONDANSETRON HCL INJ 2 MG/ML VIAL ONE (18:48)
[2017-05-06] MEDS ORDERED: GLYCOPYRROLATE INJ 1MG/ 5 ML SYR ONE (18:48)
[2017-05-06] MEDS ORDERED: ROCURONIUM BROMIDE 10 MG/ML 5ML VIAL ONE (18:48)
--- NOTE | 2017-05-06 19:27 | Diagnostic Imaging Report ---
Bone Scan, delayed phase INDICATION: 47 M with elevated PSA and back pain radiating to lower extremities COMPARISON: CT pelvis 05/04/2017; CT chest/abdo 05/03/2017 REPORT: Approximately 3 hours following intravenous administration of 27 mCi of Tc-99m MDP, delayed total body images in the anterior and posterior projections and selected spot images were obtained. Diffusely increased tracer in a mottled pattern is seen throughout the spine, thorax, pelvis, femurs and humeri. No abnormal accumulation of tracer is seen in the soft tissues or urinary tract. 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 The scan has the appearance of a "superscan". Signed by: Dr. Concha Narvaez M.D. on 05/06/2017 7:24 PM
[2017-05-06] MEDS: CEFAZOLIN SOD 1 GM VIAL IV SCH (20:10)
[2017-05-07] VITALS (7 sets, daily range): BP systolic 109–136; BP diastolic 53–59
[2017-05-07] MEDS: CEFAZOLIN SOD 1 GM VIAL IV SCH ×2 (04:21→12:58)
[2017-05-07] MEDS: CYCLOBENZAPRINE HCL 10 MG TAB PO SCH ×3 (05:54→22:59)
[2017-05-07] MEDS: TRAMADOL HCL 50 MG TAB PO SCH ×3 (05:55→22:00)
[2017-05-07] MEDS: LACTATED RINGER'S 1,000 ML IV SCH ×3 (06:04→22:44)
--- NOTE | 2017-05-07 07:50 | Progress Note ---
DATE: May 07, 2017 TIME: 6:30 a.m. OVERNIGHT: Status post laminectomy. REVIEW OF SYSTEMS: Denies any dizziness. PHYSICAL EXAMINATION VITAL SIGNS: Reviewed. GENERAL: A tired-appearing man resting in bed. HEENT: Anicteric. CARDIOVASCULAR: Normal S1 and S2. LUNGS: Moderate breath sounds. ABDOMEN: Soft, nontender and nondistended. BACK: He has a dressing in place clean and dry. EXTREMITIES: No edema or calf tenderness. NEUROLOGICAL: Alert and oriented times 3. Moving all extremities. SKIN: Dry. PSYCHIATRIC: Normal affect. LABS: Reviewed. MEDICATIONS: Reviewed. ASSESSMENT: This is a 67-year-old man with: 1. Severe lumbar stenosis with stenosis at L3-L4. 2. Sclerotic lesion diffuse in the paravertebral column. 3. Morbid obesity: Body mass index is 52.9. 4. Diabetes mellitus, type 2: Hemoglobin A1c 5.2, LDL 88. 5. Elevated prostatic specific antigen. 6. Normocytic anemia. 7. Elevated liver function tests and alkaline phosphatase. 8. Physical deconditioning. 9. Vitamin B12 deficiency. 10. Status post laminectomy. PLAN 1. Pain control. 2. Physical therapy. 3. The patient is status post laminectomy. Will initiate physical therapy. 4. Follow up bone scan report. 5. Continue bicalutamide. 6. Follow up urology recommendations. Lymph node biopsy was not done secondary to failed access. Job#: [id number] [place]
[2017-05-07 08:44] LABS: BASOPHILS % 0.3 % (0.0-1.0); EOSINOPHILS % 0.3 % (0.0-6.0); HEMATOCRIT 26.6 % (38.2-49.6); HEMOGLOBIN 8.5 g/dL (14.0-18.0); LYMPHOCYTES # (AUTO) 1.3 (1.0-3.2); LYMPHOCYTES % 20.6 % (18.0-39.1); MEAN CORPUSCULAR HEMOGLOBIN 27.6 pg (28-32); MEAN CORPUSCULAR VOLUME 86.4 fL (81-99); MONOCYTES # (AUTO) 0.4 (0.2-0.8); MONOCYTES % 6.6 % (4.4-11.3); NEUTROPHILS # (AUTO) 4.3 (2.1-6.9); NEUTROPHILS % 69.9 % (38.7-80.0); PLATELET COUNT 250 x10e3/uL (140-360); RED BLOOD COUNT 3.08 x10e6/uL (4.3-5.7); RED CELL DISTRIBUTION WIDTH 15.9 % (11.7-14.4)
[2017-05-07] MEDS: CYANOCOBALAMIN INJ 1,000 MCG/ML VIAL IM SCH (08:49)
[2017-05-07] MEDS: INSULIN LISPRO 100 UNIT/1 ML 3ML VIAL SQ SCH ×4 (08:49→20:15)
[2017-05-07] MEDS: FAMOTIDINE 20 MG TAB PO SCH ×2 (08:49→16:43)
[2017-05-07] MEDS: INSULIN DETEMIR 100 UNIT/ML PEN SQ SCH (08:50)
[2017-05-07] MEDS: BICALUTAMIDE 50 MG TABLET PO SCH (08:50)
[2017-05-07 09:09] LABS: ANION GAP 15.6 mmol/L (8-16); BLOOD UREA NITROGEN 18 mg/dL (7-26); BUN/CREATININE RATIO 17 (6-25); CALCIUM 8.8 mg/dL (8.4-10.2); CARBON DIOXIDE 22 mmol/L (22-29); CHLORIDE 100 mmol/L (98-107); CREATININE, SERUM 1.06 mg/dL (0.72-1.25); EST GLOMERULAR FILTRATION RATE > 60 ML/MIN (60-); GLUCOSE 158 mg/dL (74-118); MAGNESIUM 1.5 MG/DL (1.3-2.1); POTASSIUM 4.6 mmol/L (3.5-5.1); SODIUM 133 mmol/L (136-145)
[2017-05-07] MEDS: HYDROMORPHONE 1MG/1ML INJ IV PRN ×2 (12:58→22:54)
[2017-05-07 13:35] LABS: ANISOCYTOSIS SLIGHT; BAND NEUTROPHILS % (MANUAL) 6 %; HYPOCHROMASIA SLIGHT; LYMPHOCYTES % (MANUAL) 17 % (19-48); METAMYELOCYTES % (MANUAL) 1 % (0-0); MONOCYTES % (MANUAL) 6 % (3.4-9.0); MYELOCYTES % (MANUAL) 2 % (0-0); NEUTROPHILS % (MANUAL) 68 % (40-74)
[2017-05-07 13:36] LABS: PLATELET ESTIMATE ADEQUATE; PLATELET MORPHOLOGY COMMENT NORMAL; RBC MORPHOLOGY COMMENT NORMAL
[2017-05-07] MEDS: HYDROMORPHONE 2MG/ML INJ IV PRN (16:52)
[2017-05-08] VITALS (8 sets, daily range): BP systolic 102–135; BP diastolic 51–60
[2017-05-08] MEDS: HYDROMORPHONE 1MG/1ML INJ IV PRN (04:23)
[2017-05-08] MEDS: TRAMADOL HCL 50 MG TAB PO SCH ×3 (05:58→21:33)
[2017-05-08] MEDS: CYCLOBENZAPRINE HCL 10 MG TAB PO SCH ×3 (05:58→21:33)
[2017-05-08] MEDS: INSULIN LISPRO 100 UNIT/1 ML 3ML VIAL SQ SCH ×4 (07:30→21:33)
[2017-05-08] MEDS: FAMOTIDINE 20 MG TAB PO SCH ×2 (09:00→16:26)
[2017-05-08] MEDS: CYANOCOBALAMIN INJ 1,000 MCG/ML VIAL IM SCH (09:44)
[2017-05-08] MEDS: BICALUTAMIDE 50 MG TABLET PO SCH (09:44)
[2017-05-08] MEDS: INSULIN DETEMIR 100 UNIT/ML PEN SQ SCH (09:47)
[2017-05-08] MEDS: HYDROMORPHONE 2MG/ML INJ IV PRN ×3 (10:35→22:55)
[2017-05-08] MEDS: ONDANSETRON HCL INJ 2 MG/ML VIAL IV PRN ×2 (10:35→18:25)
[2017-05-08] MEDS: LACTATED RINGER'S 1,000 ML IV SCH ×2 (19:44→23:44)
[2017-05-09] VITALS (7 sets, daily range): BP systolic 102–142; BP diastolic 51–74
[2017-05-09] MEDS: HYDROMORPHONE 2MG/ML INJ IV PRN ×2 (04:49→20:18)
[2017-05-09] MEDS: ONDANSETRON HCL INJ 2 MG/ML VIAL IV PRN ×2 (04:49→20:18)
[2017-05-09] MEDS: TRAMADOL HCL 50 MG TAB PO SCH ×3 (05:48→21:00)
[2017-05-09] MEDS: CYCLOBENZAPRINE HCL 10 MG TAB PO SCH ×3 (05:48→21:00)
[2017-05-09] MEDS: FAMOTIDINE 20 MG TAB PO SCH ×2 (07:30→15:59)
[2017-05-09] MEDS: INSULIN LISPRO 100 UNIT/1 ML 3ML VIAL SQ SCH ×4 (07:30→21:00)
--- NOTE | 2017-05-09 07:47 | Progress Note ---
DATE: May 09, 2017 TIME: 7:26 a.m. OVERNIGHT: No events. REVIEW OF SYSTEMS: Denies any chest pain. PHYSICAL EXAMINATION VITAL SIGNS: Reviewed. GENERAL: A tired-appearing man resting in bed. HEENT: Anicteric. CARDIOVASCULAR: Normal S1 and S2. LUNGS: Moderate breath sounds. ABDOMEN: Soft and nontender. EXTREMITIES: No edema. SKIN: Dry. PSYCHIATRIC: Flat affect. BACK: He has dressing. LABS: Reviewed. MEDICATIONS: Reviewed. ASSESSMENT: A 67-year-old man with: 1. Severe lumbar stenosis with stenosis at L3-L4, status post laminectomy. 2. Sclerotic lesion diffuse in the paravertebral column. 3. Markedly elevated PSA above 500. 4. Morbid obesity: Body mass index 52.9. Hemoglobin A1c 5.2. 5. Diabetes mellitus, type 2. 6. Elevated liver function tests and alkaline phosphatase. 7. Physical deconditioning. 8. Vitamin B12 deficiency. PLAN 1. Continue pain control. 2. Biopsy of lung nodule pending today. 3. Continue supportive care. 4. Hemoglobin was 8.5 yesterday. Will recheck it today. 5. Glucose control. Job#: [id number] [place]
[2017-05-09] MEDS: INSULIN DETEMIR 100 UNIT/ML PEN SQ SCH (09:00)
[2017-05-09] MEDS: BICALUTAMIDE 50 MG TABLET PO SCH (09:00)
[2017-05-09] MEDS ORDERED: SODIUM CHLORIDE 0.9% 250ML 250 ML ONE (09:49)
[2017-05-09] MEDS ORDERED: FENTANYL CITRATE/PF 100MCG/2 ML INJ ONE ×2 (09:49→10:46)
[2017-05-09] MEDS ORDERED: MIDAZOLAM HCL 2 MG/2 ML VIAL ONE ×2 (09:50→10:46)
--- NOTE | 2017-05-09 11:47 | Diagnostic Imaging Report ---
PROCEDURE: CHEST XRAY POST PROCEDURE COMPARISON: Images from CT-guided biopsy also 05/09/2017, CT scan of the chest with contrast 05/04/27 and. INDICATIONS: POST LUNG BIOPSY FINDINGS: The lungs are well-inflated. Trace right pneumothorax seen on post biopsy CT images is not identified by plain radiography. Innumerable bilateral nodular opacities highly suggestive of metastatic disease are seen to better advantage on comparison CT. No pleural effusion. Cardiomediastinal contour and pulmonary vasculature are within normal limits for portable, AP technique. Diffuse sclerotic present osseous metastases are also seen to better advantage on comparison cross-sectional imaging. CONCLUSION: Trace iatrogenic right pneumothorax seen on post biopsy CT images is not identified by plain radiography. Multiple bilateral pulmonary nodules as described above. Dictated by: Royce Felton M.D. on 05/09/2017 at 11:47 Electronically approved by: Royce Felton M.D. on 05/09/2017 at 11:47
--- NOTE | 2017-05-09 13:34 | Diagnostic Imaging Report ---
PROCEDURE:CT GUIDED NEEDLE PLACEMENT COMPARISON:CT chest 05/04/2017 Preprocedure diagnosis: Multiple lung nodules Post procedure diagnosis: Multiple lung nodules [employer] Program Chair: Royce Felton M.D. Sedation/anesthesia: Versed 2 mg intravenous, fentanyl 150 mcg intravenous. The patient's heart rate and pulse oximetry were continuously monitored by the interventional radiology nurse. Blood pressure was monitored at 5 minute intervals. Additional medications: Lidocaine 1% for local anesthesia Contrast used: None Complications: Trace iatrogenic right pneumothorax Estimated blood loss: Minimal Blood products administered: None Implants/grafts: None Specimens: Fine needle aspiration specimens x2, core biopsy specimens x5 Condition at completion of procedure: Stable Disposition: Radiology holding area. Procedure in detail: Informed consent for the procedure was obtained from the patient and documented in the medical record. The patient was placed in a prone position on the CT couch. A marker grid was placed over the inferior right hemithorax and a limited tomogram was performed. A suitable percutaneous approach to the medial right lower lobe pulmonary nodule was identified and the overlying skin was marked and then prepped and draped in the standard sterile fashion. 1% lidocaine was infiltrated into the skin and subcutaneous tissues for local anesthesia. Then, under intermittent CT guidance, a 16 gauge needle guide was advanced to the periphery of the right lower lobe nodule. A total of 2 fine needle aspiration specimens were then obtained using 20 gauge needles. Specimens were submitted to on-site cytopathology personnel and intralesional location was confirmed. Then a total of 5 core biopsy specimens were obtained using an 18 gauge, 2 cm throw core biopsy apparatus. Specimens were submitted in formalin. At the conclusion of sampling the needle guide was removed and a sterile, occlusive dressing was applied. The patient tolerated the procedure well. A trace iatrogenic right pneumothorax was noted after removal of the guide needle. The patient remained asymptomatic with adequate oxygenation. CONCLUSION: Successful CT-guided fine needle aspiration and core biopsies of a right lower lobe pulmonary nodule. Trace, asymptomatic iatrogenic right pneumothorax will be monitored by serial chest radiographs. Dictated by: Royce Felton M.D. on 05/09/2017 at 13:34 Electronically approved by: Royce Felton M.D. on 05/09/2017 at 13:34
--- NOTE | 2017-05-09 13:39 | Diagnostic Imaging Report ---
PROCEDURE: CHEST XRAY POST PROCEDURE COMPARISON: Prior chest radiographs and CT images from biopsy procedure 05/09/2017. INDICATIONS: POST LUNG BIOPSY FINDINGS: Questionable trace right apical pneumothorax, air gap 3 mm, likely stable relative to immediate first procedure CT images accounting for differences in patient positioning. Innumerable pulmonary nodules and multiple bony foci of sclerosis are again noted. CONCLUSION: Questionable trace right apical pneumothorax, stable to decreased in size relative to post procedure CT images earlier 05/09/2017. Dictated by: Royce Felton M.D. on 05/09/2017 at 13:39 Electronically approved by: Royce Felton M.D. on 05/09/2017 at 13:39
[2017-05-09] MEDS: CYANOCOBALAMIN INJ 1,000 MCG/ML VIAL IM SCH (14:55)
[2017-05-10] VITALS: BP 126/58
[2017-05-10] MEDS: ONDANSETRON HCL INJ 2 MG/ML VIAL IV PRN (01:30)
[2017-05-10] MEDS: HYDROMORPHONE 2MG/ML INJ IV PRN (01:30)
[2017-05-10 04:00] VITALS: BP 107/56
[2017-05-10] MEDS: TRAMADOL HCL 50 MG TAB PO SCH (05:31)
[2017-05-10] MEDS: CYCLOBENZAPRINE HCL 10 MG TAB PO SCH (05:31)
[2017-05-10] MEDS ORDERED: BICALUTAMIDE50 MG PO (06:16)
[2017-05-10] MEDS ORDERED: FAMOTIDINE20 MG PO (06:16)
[2017-05-10] MEDS ORDERED: ULTRAM 50MG50 MG PO (06:16)
[2017-05-10] MEDS ORDERED: TYLENOL WITH C1 EACH PO (06:16)
[2017-05-10] MEDS ORDERED: CYCLOBENZAPRINE10 MG PO (06:16)
[2017-05-10] MEDS ORDERED: Insulin Detemir SQ (06:16)
[2017-05-10 06:31] LABS: BASOPHILS % 0.6 % (0.0-1.0); EOSINOPHILS # (AUTO) 0.1 (0.0-0.4); HEMATOCRIT 24.9 % (38.2-49.6); HEMOGLOBIN 8.2 g/dL (14.0-18.0); LYMPHOCYTES # (AUTO) 1.9 (1.0-3.2); LYMPHOCYTES % 35.9 % (18.0-39.1); MEAN CORPUSCULAR HEMOGLOBIN 28.1 pg (28-32); MEAN CORPUSCULAR HGB CONC 32.9 g/dL (31-35); MEAN CORPUSCULAR VOLUME 85.3 fL (81-99); MONOCYTES # (AUTO) 0.4 (0.2-0.8); MONOCYTES % 6.7 % (4.4-11.3); NEUTROPHILS # (AUTO) 2.7 (2.1-6.9); NEUTROPHILS % 51.4 % (38.7-80.0); PLATELET COUNT 240 x10e3/uL (140-360); RED BLOOD COUNT 2.92 x10e6/uL (4.3-5.7); RED CELL DISTRIBUTION WIDTH 15.9 % (11.7-14.4)
[2017-05-10 06:44] LABS: ANION GAP 14.1 mmol/L (8-16); BLOOD UREA NITROGEN 14 mg/dL (7-26); BUN/CREATININE RATIO 15 (6-25); CALCIUM 8.6 mg/dL (8.4-10.2); CARBON DIOXIDE 24 mmol/L (22-29); CHLORIDE 104 mmol/L (98-107); CREATININE, SERUM 0.93 mg/dL (0.72-1.25); EST GLOMERULAR FILTRATION RATE > 60 ML/MIN (60-); GLUCOSE 150 mg/dL (74-118); POTASSIUM 4.1 mmol/L (3.5-5.1); SODIUM 138 mmol/L (136-145)
[2017-05-10 07:29] VITALS: BP 107/56
--- NOTE | 2017-05-10 07:43 | Diagnostic Imaging Report ---
PROCEDURE: A single AP view of the chest. COMPARISON: None. INDICATIONS: PNEUMOTHORAX FINDINGS: Lines/tubes: None. Lungs: Multiple bilateral pulmonary parenchymal nodules. No focal consolidation. Pleura: There is no pleural effusion or pneumothorax. Heart and mediastinum: The heart and the mediastinum are unremarkable. Bones: Diffuse sclerotic lesions in the appendicular and axial skeleton. IMPRESSION: Bilateral pulmonary parenchymal nodules and diffuse sclerotic lesions consistent with metastatic disease. No pneumothorax. Dictated by: Jermaine Suarez M.D. on 05/10/2017 at 7:43 Electronically approved by: Jermaine Suarez M.D. on 05/10/2017 at 7:43
[2017-05-10] MEDS: FAMOTIDINE 20 MG TAB PO SCH (07:51)
[2017-05-10] MEDS: INSULIN LISPRO 100 UNIT/1 ML 3ML VIAL SQ SCH (07:52)
[2017-05-10] MEDS: BICALUTAMIDE 50 MG TABLET PO SCH (08:02)
[2017-05-10] MEDS: CYANOCOBALAMIN INJ 1,000 MCG/ML VIAL IM SCH (08:02)
[2017-05-10 08:15] VITALS: BP 105/60
[2017-05-10 08:16] LABS: ANISOCYTOSIS SLIGHT; EOSINOPHILS % (MANUAL) 2 % (0-7); HYPOCHROMASIA MODERATE; LYMPHOCYTES % (MANUAL) 36 % (19-48); MONOCYTES % (MANUAL) 6 % (3.4-9.0); NEUTROPHILS % (MANUAL) 55 % (40-74); NUCLEATED RED BLOOD CELLS 1; PLATELET ESTIMATE ADEQUATE; POIKILOCYTOSIS SLIGHT; RBC MORPHOLOGY COMMENT NORMAL
[2017-05-10 08:17] LABS: PLATELET MORPHOLOGY COMMENT NORMAL
[2017-05-10] MEDS: INSULIN DETEMIR 100 UNIT/ML PEN SQ SCH (08:38)
--- NOTE | 2017-05-10 12:54 | Discharge Summary ---
PRINCIPAL DIAGNOSES 1. Markedly elevated PSA of 522. 2. Multiple metastatic lesions. 3. Severe lumbar stenosis with stenosis at L3-L4, status post laminectomy. 4. Sclerotic lesion diffuse in the paravertebral column. 5. Morbid obesity: Body mass index 52.9. Hemoglobin A1c 5.2. 6. Diabetes mellitus, type 2. 7. Vitamin B12 deficiency. 8. Physical deconditioning. 9. Elevated alkaline phosphatase and liver function tests. SECONDARY DIAGNOSIS: Diabetes mellitus type 2. CHIEF COMPLAINT: Leg weakness and back discomfort. HISTORY OF PRESENT ILLNESS: This is a 67-year-old man with leg weakness. Please refer to the H and P for further details. HOSPITAL COURSE: Patient was found to have severely elevated PSA of 522. He had sclerotic lesions seen diffusely in the paravertebral column. Bone scan showed diffuse disease of the skeleton. He underwent biopsy of the lung nodule; results are still pending. He had severe lumbar stenosis and underwent laminectomy of L3-L4 stenosis. Diabetes mellitus type 2 with elevated hemoglobin A1c, which was 5.2. His BMI was 52.9, morbid obesity. Patient has physical deconditioning. He had vitamin B12 deficiency, started on vitamin B12 injection IM shots. Patient is currently appropriate for discharge. DISCHARGE MEDICATIONS: Per electronic medical record. FOLLOW-UP 1. Primary care doctor in 1 week. 2. Follow up with Urology in 1 week. SUSIE RODRIGUEZ MD Job#: [id number] [place]
== END 2017-05-10 09:40 | disposition home or self-care (01) | DRG 516 ==
LOC: MED/SURG 19:52
PROVIDERS: ADMIT Internal Medicine; ATTEND Internal Medicine
PROC: 0QB00ZZ Excision of Lumbar Vertebra, Open Approach (ICD-10-PCS; 2017-05-06)
PROC: 30233N1 Transfusion of Nonautologous Red Blood Cells into Peripheral Vein, Percutaneous Approach (ICD-10-PCS; 2017-05-06)
PROC: 01NB0ZZ Release Lumbar Nerve, Open Approach (ICD-10-PCS; principal; 2017-05-06 12:00)
PROC: 0BBF3ZX Excision of Right Lower Lung Lobe, Percutaneous Approach, Diagnostic (ICD-10-PCS; 2017-05-09)
PROC: 0B9F3ZX Drainage of Right Lower Lung Lobe, Percutaneous Approach, Diagnostic (ICD-10-PCS; 2017-05-09)
DX: C79.51 Secondary malignant neoplasm of bone (principal); Z68.43 Body mass index [BMI] 50.0-59.9, adult; E11.65 Type 2 diabetes mellitus with hyperglycemia; C79.52 Secondary malignant neoplasm of bone marrow; E53.8 Deficiency of other specified B group vitamins; E66.01 Morbid (severe) obesity due to excess calories; M89.8X8 Other specified disorders of bone, other site; M10.9 Gout, unspecified; F17.210 Nicotine dependence, cigarettes, uncomplicated; M48.07 Spinal stenosis, lumbosacral region; M54.17 Radiculopathy, lumbosacral region; M54.16 Radiculopathy, lumbar region; E83.39 Other disorders of phosphorus metabolism; L40.8 Other psoriasis; N47.1 Phimosis; N50.0 Atrophy of testis; M48.061 Spinal stenosis, lumbar region without neurogenic claudication; R97.20 Elevated prostate specific antigen [PSA]
CPT/HCPCS: 32405; 36415; 36430; 71045; 71260; 72020; 72132; 72192; 74170; 74470; 77012; 78306; 80048; 80053; 80061; 80076; 81001; 82565; 82607; 82728; 82948; 83036; 83540; 83735; 84152; 84165; 84443; 84466; 84520; 85014; 85018; 85025; 85651; 86850; 86900; 86920; 87086; 88112; 88172; 88173; 88305; 88311; 88342; 93005; A9503; J0690; J1100; J1170; J2001; J2060; J2250; J2270; J2405; J3420; J7050; P9016; Q9967